=== PATIENT | male | born 1935 | race Hispanic/Latino ===

== ENCOUNTER 2020-04-23 09:49 | Emergency (ER) | payer OTHER ==
--- OUTSIDE RECORDS SUMMARY | 2020-04-23 11:24 | XMS REPORT ---
:1935 Author Organization [facility] t Address [address] [place] [address] Care Team Providers Name Role Phone Unavailable Unavailable Unavailable Payers Payer Name Policy Type Policy Number Effective Date Expiration Date S ource Problems Condition Condition Condition Status Onset Resolution Last Treating Co mments Source Name Details Category Date Date Treatment Clinician Date Hearing Hearing Problem Active [facility] Vitamin D Vitamin D Problem Active [facility] deficiency deficiency [facility] Hyperglyce Hyperglyce Problem Active [facility] manuela manuela [facility] Swelling Swelling Problem Active [facility] right [facility] - elbow elbow [facility] l [facility]ics 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 [facility] - multiple multiple Memori a joints joints l [facility] Deep vein Deep vein Problem Active [facility] thrombosis thrombosis Mary kes - (DVT) of (DVT) of Memori a right right l lower lower [facility] extremity, extremity, en t unspecifie unspecifie Cl inics d d chronicity chronicity , , unspecifie unspecifie d vein d vein Complaint Complaint Problem Active [facility] of of [facility] - debility debility Memori a and and l malaise malaise [facility] Atopic Atopic Problem Active [facility] dermatitis dermatitis [facility] - [facility] Arthralgia Arthralgia Problem Active [facility] of right of right [facility] - elbow elbow [facility] Anxiety Anxiety Problem Active [facility] Dizziness Dizziness Problem Active [facility] Closed Closed Problem Active [facility] nondisplac nondisplac Mary kes - ed ed Memoria intertroch intertroch l anteric anteric [facility] fracture fracture ent of right of right Clinic s femur with femur with routine routine healing, healing, subsequent subsequent encounter encounter Hyperlipid Hyperlipid Problem Active [facility] 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 GERD GERD Problem Active [facility] without without [facility] - esophagiti esophagiti Me moria s s l [facility]ics Chronic Chronic Problem Active [facility] back pain back pain Luke s - [facility]oria l [facility] Lumbago Lumbago Problem Active [facility] with with [facility] - sciatica, sciatica, Ceferino juvencio left side left side l [facility] Degenerati Degenerati Problem Active [facility] on of on of [facility] - lumbar or lumbar or Ceferino juvencio lumbosacra lumbosacra l l l [facility] interverte interverte en t bral disc bral disc Clin ics Erectile Erectile Problem Active [facility] t dysfunctio dysfunctio Mary kes - n n Memoria following following l radiation radiation Outp ati therapy therapy ent Clinics Prostate Prostate Problem Active [facility] cancer cancer [facility] Incontinen Incontinen Problem Active [facility] Localized Localized Problem Active [facility] swelling swelling [facility] - of both of both Memoria lower legs lower legs l [facility]ics Memory Memory Problem Active [facility] changes changes [facility] Loss of Loss of Problem Active [facility] balance balance [facility] Allergies, Adverse Reactions, Alerts Allergy Allergy Status Severity Reaction(s) Onset Inactive Treating Comm ents Source Name Type Date Date Clinician iodine DA Active [facility] 1-03 Clear 00:00: Gillis 00 [facility] iodine DA Active U [facility] 1-02 [facility] 00:00: e 00 [facility] iodine DA Active U [facility] 9-04 [facility] 00:00: e 00 [facility] Iodine Adverse Active Info Not [facility] Medications Ordered Filled Start Stop Current Ordering Indication Dosage Frequency Signature Comments Components Source Medication Medication Date Date Medication? Clinician (SIG) Name Name Omeprazole Omeprazole Yes Antoine [address] [facility] [address] [facility] [facility] ent Clinics Meclizine Meclizine Yes Antoine [address] [facility] HCl HCl Sandhu as needed [facility] ent Clinics Acetaminoph Acetaminoph Yes Antoine [address] en en Sandhu as needed [facility] ent Clinics Tylenol # 3 Tylenol # 3 Yes Antoine one tab [facility] Sand[facility] ent Clinics Immunizations Ordered Filled Immunization Date Status Comments Sourc e Immunization Name Name FluAD FluAD 2018-09-[address] [facility] - 00:00[facility]00 [facility] Procedures This patient has no known procedures. Encounters Start End Encounter Admission Attending Care Care Encounter Source Date/Time Date/Time Type Type Clinicians Facility Department ID 2020-03-19 2020-03-19 [facility] [id number] [facility] 20:03:00 20:03:00 [employer] [facility] 2020-03-19 2020-03-19 [facility] [id number] 14:00:00 14:00:00 t Social Tables [facility] Medicine [facility] Outpati ent Clinics 2020-03-13 2020-03-13 [facility] [id number] [address] 13:22:00 13:22:00 t Specialty/U Mary kes - Specialty rology [facility] a /Urology Clinic l Clinic [facility] 2020-02-29 2020-02-29 [facility] [id number] 14:35:00 14:35:00 t Specialty/U Mary kes - Specialty rology Memori a /Urology Clinic l Clinic Outpati ent Clinics 2020-01-06 2020-01-06 [facility] [id number] [address] 09:00:00 09:00:00 [place] - Drive [facility] Medicine Outpati ent Clinics 2019-12-30 2019-12-30 [facility] [id number] 09:09:00 09:09:00 t [place]ri[place] s - Drive [facility] Medicine Outpati ent Clinics 2019-12-27 2019-12-27 [facility] [id number] 13:00:00 13:00:[address] [facility] [address] [employer] s - Road [facility] Medicine Outpati ent Clinics 2019-09-23 2019-09-23 [facility] [id number] 12:28:00 12:28:00 t Specialty/U Mary kes - Specialty rology Memori a /Urology Clinic l Clinic Outpati ent Clinics 2019-08-31 2019-08-31 [facility] [id number] 09:45:00 09:45:00 t Specialty/U Mary kes - Specialty rology Memori a /Urology Clinic l Clinic Outpati ent Clinics 2019-08-24 2019-08-24 [facility] [id number] 13:22:00 13:22:00 t [place] - Drive [facility] Medicine Outpati ent Clinics 2019-08-22 2019-08-22 [facility] [id number] 08[facility]30:00 08:30:00 t [place] s - Drive [facility] Medicine Outpati ent Clinics 2019-02-14 2019-02-14 [facility] [id number] 09:15:00 09:15:00 [place] - Drive [facility] Medicine Outpati ent Clinics 2019-01-12 2019-01-12 [facility] [id number] 13:30:00 13:30:00 t [place] s - Drive [facility] Medicine Outpati ent Clinics 2018-12-06 2018-12-06 [facility] [id number] 10:15:00 10:15:00 t Specialty/U Mary kes - Specialty rology [facility] a /Urology Clinic l Clinic Outpati ent Clinics 2018-09-07 2018-09-07 [facility] [id number] 08:30:00 08:30:[address] Luke s - Drive [facility] Outpati ent Clinics 2018-04-09 2018-04-09 [facility] [id number] 09:29:00 09:29:[address] Luke s - Drive [facility] Outpati ent Clinics 2018-04-05 2018-04-05 [facility] [id number] 09:00:00 09:00:[address] Luke s - Drive [facility] Outpati ent Clinics 2018-03-23 2018-03-23 [facility] [id number] 10:00:00 10:00:[address] Luke s - Drive [facility] Results Test Description Test Time Test Comments Results Result Comments Source - XR CHEST 1 V 2019-11-26 FAX: Y 08:32:00 Valencia Pham MD [phone] [place]: St: ADM FAX: Blanco Mcintyre MD [phone] Name: ELIZABETH ROJO [facility] : 1935 Age/S: 84/M [address] Unit #: [id number] Loc: V.2086 [place] [address] Phys: Blanco Mcintyre MD Acct: [id number] Dis Date: Status: ADM IN PHONE #: [phone] Exam Date: 11/26/2019 0800 FAX #: [phone] Reason: SOB EXAMS: CPT CODE: [id number] XR CHEST 1 V [id number] REASON FOR EXAM: SOB EXAM ORDER DATE: 11/26/2019 4:00 AM Ordering: Blanco Mcintyre MD Attending:Valencia Pham MD Location: PROCEDURE: - XR CHEST 1 V COMPARISON: 11/24/2019 FINDINGS: Portable AP frontal view of the chest obtained at 8:01 AM shows patchy airspace opacity at the left base. The heart size is minimally enlarged. Pulmonary vasculatures are minimally congested. IMPRESSION: Atelectasis of the left base with probable small left pleural effusion. No evidence of pneumothorax. Stable appearance of the acute distal left clavicular fracture at 0832 Reported and signed by: Daren Jiménez M.D. CC: Valencia Pham MD; Blanco Mcintyre MD Technologist: AYANNA CABELLO RT (R); Radha Ruiz RT(R) Trnscrd Date/Time/By: 11/26/2019 (0832) : By: [email or web address] Orig Print D/T: S: 11/26/2019 (5219) PAGE 1 Signed Report BASIC METABOLIC PANEL 2019-11-26 07:02:00 Test Item Value Reference Range Interpretation Comme nts SODIUM (test code = NA) 140 mmol/L 136-145 N POTASSIUM (test code = K) 3.9 mmol/L 3.5-5.1 N CHLORIDE (test code = CL) 107.0 mmol/L 98-107 N CARBON DIOXIDE (test code = 27.0 mmol/L 21-32 N CO2) ANION GAP (test code = GAP) 9.9 10-20 L GLUCOSE (test code = GLU) 168 mg/dL 74-106 H BLOOD UREA NITROGEN (test code 16 mg/dL 7-18 N = BUN) GLOMERULAR FILTRATION RATE > 60 mL/min >=60 E stimated GFR by using (test code = GFR) Modified M DRD formula.Chronic kidney disease is defined as either kidney d amageor GFR <60 mL/min/1.73 m2 for >3 months. CREATININE (test code = CREAT) 1.00 mg/dL 0.7-1.3 N BUN/CREATININE RATIO (test code 16.0 10-20 N = BUN/CREA) CALCIUM (test code = CA) 8.6 mg/dL 8.5-10.1 N [id number] 07:02:00 Test Item Value Reference Range Interpretation Comments PHOSPHORUS (test code = PHOS) 3.0 mg/dL 2.5-4.9 N [id number] 07:02:00 Test Item Value Reference Range Interpretation Comments MAGNESIUM (test code = MAG) 2.1 mg/dL 1.8-2.4 N BASIC METABOLIC [id number] 06:57:00 Test Item Value Reference Range Interpretation Comments SODIUM (test code = NA) 140 mmol/L 136-145 N POTASSIUM (test code = K) 3.9 mmol/L 3.5-5.1 N CHLORIDE (test code = CL) 107.0 mmol/L 98-107 N CARBON DIOXIDE (test code = CO2) mmol/L 21-32 ANION GAP (test code = GAP) 10-20 GLUCOSE (test code = GLU) mg/dL 74-106 BLOOD UREA NITROGEN (test code = mg/dL 7-18 BUN) GLOMERULAR FILTRATION RATE (test mL/min >=60 code = GFR) CREATININE (test code = CREAT) mg/dL 0.7-1.3 BUN/CREATININE RATIO (test code 10-20 = BUN/CREA) CALCIUM (test code = CA) mg/dL 8.5-10.1 [id number] 06:57:00 Test Item Value Reference Range Interpretation Comments PHOSPHORUS (test code = PHOS) mg/dL 2.5-4.9 [id number] 06:57:00 Test Item Value Reference Range Interpretation Comments MAGNESIUM (test code = MAG) mg/dL 1.8-2.4 CBC W/AUTO [id number] 06:25:00 Test Item Value Reference Range Interpretation Comments WHITE BLOOD CELL (test code = 8.5 K/mm3 4.5-12.5 N WBC) RED BLOOD CELL (test code = 3.81 mill/mm3 4.0-5.8 L RBC) HEMOGLOBIN (test code = HGB) 12.1 gram/dL 13.0-17.5 L HEMATOCRIT (test code = HCT) 36.3 % 42.0-52.0 L MEAN CELL VOLUME (test code = 95.3 fL 80-98 N MCV) MEAN CELL HGB (test code = MCH) 31.8 picogram 27.0-33.0 N MEAN CELL HGB CONCETRATION 33.3 gram/dL 33.0-36.0 N (test code = MCHC) RED CELL DISTRIBUTION WIDTH 14.2 % 11.6-16.2 N (test code = RDW) RED CELL DISTRIBUTION WIDTH SD 49.3 fL 37.0-51.0 N (test code = RDW-SD) PLATELET COUNT (test code = 238 K/mm3 150-450 N PLT) MEAN PLATELET VOLUME (test code 9.8 fL 6.7-11.0 N = MPV) NEUTROPHIL % (test code = NT%) 63.1 % 39.0-69.0 N IMMATURE GRANULOCYTE % (test 0.4 % 0.0-5.0 N code = IG%) LYMPHOCYTE % (test code = LY%) 25.6 % 25.0-55.0 N MONOCYTE % (test code = MO%) 7.1 % 0.0-10.0 N EOSINOPHIL % (test code = EO%) 3.4 % 0.0-5.0 N BASOPHIL % (test code = BA%) 0.4 % 0.0-1.0 N NUCLEATED RBC % (test code = 0.0 % 0-0 N NRBC%) NEUTROPHIL # (test code = NT#) 5.37 K/mm3 1.8-7.7 N IMMATURE GRANULOCYTE # (test 0.03 x10 3/uL 0-0.03 N code = IG#) LYMPHOCYTE # (test code = LY#) 2.18 K/mm3 1.0-5.0 N MONOCYTE # (test code = MO#) 0.60 K/mm3 0-0.8 N EOSINOPHIL # (test code = EO#) 0.29 K/mm3 0.0-0.5 N BASOPHIL # (test code = BA#) 0.03 K/mm3 0.0-0.2 N NUCLEATED RBC # (test code = 0.00 K/mm3 0.0-0.1 N NRBC#) [id number] 08:18:00 Test Item Value Reference Range Interpretation Comments GLUBED (test code = 91 mg/dL 74-106 N Performe d by certified GLUBED) chemical process operator at [facility] - CT CHEST [id number] 00:06:00 Name: ELIZABETH ROJO [facility] : 1935 Age/S: 84 / M [address] Unit #: [id number] Loc: [place] [address] Phys: Radha Dempsey ENROBING MACHINE FEEDER Acct: [id number] Dis Date: Status: REG ER PHONE #: [phone] Exam Date: 11/24/2019 2330 FAX #: [phone] Reason: fall, pain, bruising EXAMS: CPT CODE: [id number] CT CHEST W/CONTRAST 70123 AFTER HOURSSERVICE ON: 11/24/2019 11:[address] Scan of the Chest With Contrast Location Code M12 History: fall, pain, bruising Technique: Axial and reconstructed coronal and sagittal scans were performed on a helical scanner post IV contrast only. One or more of the following dose reduction techniques were used: Automated exposure control, adjustment of the mA and/or kV according to patient size, and/or utilization of iterative reconstruction technique. Findings: No evidence of aorticaneurysm or dissection. There are no filling defects in the pulmonary arteries. There is mild cardiomegaly. There is no pericardial effusion. Prominent pleural fibrotic changes are seen, slightly more pronounced in the lung bases consistent with interstitial fibrosis. Scattered emphysematous blebs also noted. There is no pleural effusion. There is no pneumothorax. There is a displaced, recent left distal clavicle fracture. There are fracturesof the left 1st through 8th posterior ribs. No large hematoma or definite vascular injury is seen of the left subclavian artery or proximal vertebral artery. There is no acute sternal fracture. No definite compression fractures are seen in the thoracic spine.Impression: Left 1st through 8th posterior rib fractures. No pneumothorax. Comminuted left distal clavicle fracture. Chronic fibrotic changes. Cardiomegaly. PAGE 1 Signed Report (CONTINUED)Name: ELIZABETH ROJO [facility] : 1935 Age/S: 84 / M [address] Unit #: [id number] Loc: [place] [address] Phys: Radha Dempsey ENROBING MACHINE FEEDER Acct: [id number] Dis Date: Status: REG ER PHONE #: [phone] Exam Date: 11/24/2019 2330 FAX #: [phone] Reason: fall, pain, bruising EXAMS: CPT CODE: [id number] CT CHEST W/CONTRAST 03424 <Continued> AFTER HOURS SERVICE ON: 11/24/2019 11:[address] Scan of the Abdomenand Pelvis With Contrast Location Code M12 History: fall, pain, bruising Technique: Axial and reconstructed coronal and sagittal scans were performed on a helical scanner post IV contrast. One or more of the following dose reduction techniques were used: Automated exposure control, adjustment of the mA and/or kV according to patient size, and/or utilization of iterative reconstruction technique. Findings: There is no liver or splenic laceration. There is no perisplenic or perihepatic free fluid. Gallbladder is absent. There is pneumobilia from a presumed sphincterotomy. There are no peripancreatic inflammatory changes. There is a hypodense subcentimeter lesion in the left kidney which is too small to adequately characterize. There is no hydronephrosis. Adrenal glands are unremarkable. No evidence of aortic aneurysm or dissection. Bladder is unremarkable. There is no pelvic fracture. No compression fracture seen in the lumbar spine. There is no bowel obstruction, free air ormesenteric edema. The appendix is not visualized. IMPRESSION: No acute traumatic findings in the abdomen or pelvis. Electronically Signedby Karol John M.D. on 11/25/2019 at 0006 Reported and signed by: Karol John M.D. PAGE 2 Signed Report (CONTINUED) Name: ELIZABETH ROJO [facility] : 1935 Age/S: 84 / M [address] Unit #: [id number] Loc: [place] [address] Phys: Radha Dempsey ENROBING MACHINE FEEDER Acct: [id number] Dis Date: Status: REG ER PHONE #: [phone] Exam Date: 11/24/2019 2330 FAX #: [phone] Reason: fall, pain, bruising EXAMS: CPT CODE: [id number] CT CHEST W/CONTRAST [id number] <Continued> CC: Radha Dempsey ENROBING MACHINE FEEDER; Rodger Montero MD Technologist:LAYNE MCDONOUGH CTDI: DLP: Trnscb Date/Time: 11/25/2019 (0006) [email or web address] Orig Print D/T: S: 11/25/2019 (0009) PAGE 3 Signed Report- CT ABD PELVIS [id number] 00:06:00 Name: ELIZABETH ROJO [facility] : 1935 Age/S: 84 / [facility] [address] [facility] [id number] Loc: [place] [address] Phys: Radha Dempsey NP Acct: [id number] Dis Date: Status: REG ER PHONE #: [phone] Exam Date: 11/24/20192329 FAX #: [phone] Reason: fall, pain, bruising EXAMS: CPTCODE: [id number] CT ABD PELVIS W/CONT 34636 AFTER HOURS SERVICE ON: 11/24/2019 11:[address] Scan of the Chest With Contrast Location Code M12 History: fall, pain, bruising Technique: Axial and reconstructed coronal and sagittal scans were performed on a helical scanner post IV contrast only. One or more of the following dose reduction techniques were used: Automated expos ure control, adjustment of the mA and/or kV according to patient size, and/or utilization of iterative reconstruction technique. Findings: No evidence of aorticaneurysm or dissection. There are no filling defects in the pulmonary arteries. There is mild cardiomegaly. There is no pericardial effusion. Prominent pleural fibrotic changes are seen, slightly more pronounced in the lung bases consistent with interstitial fibrosis. Scattered emphysematous blebs also noted. There is no pleural effusion. There is no pneumothorax. There is a displaced, recent left distal clavicle fracture. There are fracturesof the left 1st through 8th posterior ribs. No large hematoma or definite vascular injury is seen of the left subclavian artery or proximal vertebral artery. There is no acute sternal fracture. No definite compression fractures are seen in the thoracic spine.Impression: Left 1st through 8th posterior rib fractures. No pneumothorax. Comminuted left distal clavicle fracture. Chronic fibrotic changes. Cardiomegaly. PAGE 1 Signed Report (CONTINUED)Name: ELIZABETH ROJO [facility] : 1935 Age/S: 84 / M [address] [facility] Unit #: [id number] Loc: [place] [address] Phys: Radha Dempsey ENROBING MACHINE FEEDER Acct: [id number] Dis Date: Status: REG ER PHONE #: [phone] Exam Date: 11/24/2019 2330 FAX #: [phone] Reason: fall, pain, bruising EXAMS: CPT CODE: [id number] CT ABD PELVIS W/CONT 42861 <Continued> AFTER HOURS SERVICE ON: 11/24/2019 11:[address] Scan of the Abdomenand Pelvis With Contrast Location Code M12 History: fall, pain, bruising Technique: Axial and reconstructed coronal and sagittal scans were performed on a helical scanner post IV contrast. One or more of the following dose reduction techniques were used: Automated exposure control, adjustment of the mA and/or kV according to patient size, and/or utilization of iterative reconstruction technique. Findings: There is no liver or splenic laceration. There is no perisplenic or perihepatic free fluid. Gallbladder is absent. There is pneumobilia from a presumed sphincterotomy. There are no peripancreatic inflammatory changes. There is a hypodense subcentimeter lesion in the left kidney which is too small to adequately characterize. There is no hydronephrosis. Adrenal glands are unremarkable. No evidence of aortic aneurysm or dissection. Bladder is unremarkable. There is no pelvic fracture. No compression fracture seen in the lumbar spine. There is no bowel obstruction, free air ormesenteric edema. The appendix is not visualized. IMPRESSION: No acute traumatic findings in the abdomen or pelvis. Electronically Signedby Karol John M.D. on 11/25/2019 at 0006 Reported and signed by: Karol John M.D. PAGE 2 Signed Report (CONTINUED) Name: ELIZABETH ROJO [facility] : 1935 Age/S: 84 / M [address] Unit #: [id number] Loc: [place] [address] Phys: Radha Dempsey NP Acct: [id number] Dis Date: Status: REG ER PHONE #: [phone] Exam Date: 11/24/2019 2330 FAX #: [phone] Reason: fall, pain, bruising EXAMS: CPT CODE: [id number] CT ABD PELVIS W/CONT 54393 <Continued> CC: Radha Dempsey ENROBING MACHINE FEEDER; Rodger Montero MD Technologist:LAYNE MCDONOUGH CTDI: DLP: Trnscb Date/Time: 11/25/2019 (5) Anna MarieMA50 Orig Print D/T: S: 11/25/2019 (8) PAGE 3 Signed ReportBASI METABOLIC [id number] 23:46:00 Test Item Value Reference Range Interpretation Comments SODIUM (test code = 141 mmol/L 136-145 N NA) POTASSIUM (test code 3.9 mmol/L 3.5-5.1 N = K) CHLORIDE (test code = 107.0 mmol/L 98-107 N CL) CARBON DIOXIDE (test 28.0 mmol/L 21-32 N code = CO2) ANION GAP (test code 9.9 10-20 L = GAP) GLUCOSE (test code = 116 mg/dL 74-106 H GLU) BLOOD UREA NITROGEN 10 mg/dL 7-18 N (test code = BUN) GLOMERULAR FILTRATION > 60 mL/min >=60 Estima sánchez GFR by RATE (test code = using Elvi fied MDRD GFR) formula.Chronic kidney disease is defined as eith er kidney damageor GFR <60 mL/min/1.73 m2 for >3 months. CREATININE (test code 0.80 mg/dL 0.7-1.3 N = CREAT) BUN/CREATININE RATIO 12.5 10-20 N (test code = BUN/CREA) CALCIUM (test code = 9.1 mg/dL 8.5-10.1 N CA) [id number] 23:46:00 Test Item Value Reference Range Interpretation Comments TROPONIN-I (test code = TROPI) <0.015 ng/mL 0-0.045 N CREATINE KINASE (CK)2019-11-24 23:37:00 Test Item Value Reference Range Interpretation Comments CREATINE KINASE (CK) (test code = 69 IUnit/L 26-208 N CK) PROTHROMBIN [id number] 23:36:00 Test Item Value Reference Range Interpretation Comments PROTHROMBIN TIME 11.8 seconds 9.0-14.0 N PATIENT (test code = PTP) INTERNATIONAL NORMAL 1.0 0.8-1.2 N The the rapeutic range RATIO (test code = for oral INR) anticoagulant t herapy formost indicat ions is an internati onal normalized rati o (INR)of between 2.0 and 3.0. The recommended therapeutic INR range for various cli nical situations is l isted below: Clinical Situat ion INR range Pulmonary embol ism treatment (2.0-3.0)Venou s thrombosis treatmentVenous thrombosis prophylaxis (hi gh risk surgery)Prevent ion of systemic emboli sm from: A cute myocardial infa rction Valvula r heart disease Atrial fibrilla tion Mechanical pros thetic heart valves (2.5-3.5) IS PATIENT ON ANTICOAGULANTS? NTHROMBOPLASTIN TIME [id number] 23:36:00 Test Item Value Reference Range Interpretation Comments THROMBOPLASTIN TIME PARTIAL 29.5 seconds 25.0-36.5 N (test code = PTT) IS PATIENT ON ANTICOAGULANTS? NBASIC METABOLIC [id number] 23:32:00 Test Item Value Reference Range Interpretation Comments SODIUM (test code = NA) 141 mmol/L 136-145 N POTASSIUM (test code = K) 3.9 mmol/L 3.5-5.1 N CHLORIDE (test code = CL) 107.0 mmol/L 98-107 N CARBON DIOXIDE (test code = CO2) mmol/L 21-32 ANION GAP (test code = GAP) 10-20 GLUCOSE (test code = GLU) mg/dL 74-106 BLOOD UREA NITROGEN (test code = mg/dL 7-18 BUN) GLOMERULAR FILTRATION RATE (test mL/min >=60 code = GFR) CREATININE (test code = CREAT) mg/dL 0.7-1.3 BUN/CREATININE RATIO (test code 10-20 = BUN/CREA) CALCIUM (test code = CA) mg/dL 8.5-10.1 [id number] 23:32:00 Test Item Value Reference Range Interpretation Comments TROPONIN-I (test code = TROPI) ng/mL 0-0.045 CBC W/O [id number] 23:32:00 Test Item Value Reference Range Interpretation Comments WHITE BLOOD CELL (test code = 9.2 K/mm3 4.5-12.5 N WBC) RED BLOOD CELL (test code = 4.01 mill/mm3 4.0-5.8 N RBC) HEMOGLOBIN (test code = HGB) 12.3 gram/dL 13.0-17.5 L HEMATOCRIT (test code = HCT) 38.9 % 42.0-52.0 L MEAN CELL VOLUME (test code = 97.0 fL 80-98 N MCV) MEAN CELL HGB (test code = MCH) 30.7 picogram 27.0-33.0 N MEAN CELL HGB CONCETRATION 31.6 gram/dL 33.0-36.0 L (test code = MCHC) RED CELL DISTRIBUTION WIDTH 14.0 % 11.6-16.2 N (test code = RDW) PLATELET COUNT (test code = 251 K/mm3 150-450 N PLT) MEAN PLATELET VOLUME (test code 9.5 fL 6.7-11.0 N = MPV) - XR CHEST 1 [id number] 22:33:00 FAX: Rodger Montero MD [place]: B St: REG Name: ELIZABETH ROJO [facility] : 1935 Age/S: 84/M [address] [facility] Unit#: [id number] Loc: [place] [address] Phys: Rodger Montero MD Acct: [id number] Dis Date: Status: REG ER PHONE #: [phone] Exam Date: 11/24/2019 2140 FAX #: [phone] Reason: fall EXAMS: CPT CODE: [id number] XR CHEST 1 V 16389 REASON FOR EXAM: fall Exam Order Date: 11/24/2019 9:19 PM Ordering M.D.: Rodger Montero MD PROCEDURE: - XR CHEST 1 V COMPARISON: Chest radiograph and CT chest January 06, 2015 FINDINGS: There are interstitial opacities throughout both lungs which have worsened from the previous radiograph. This may represent worsening pulmonary fibrotic changes which are better characterized on the previous CT scan of the chest. However it would be difficult to exclude a s uperimposed acute infection. The cardiomediastinal silhouette appears prominent relative to the thorax however this may be due to diminished lung volumes. There are minimally displaced fractures of the left first and second ribs posteriorly. There is also fracture of the distal left clavicle with disruption of the acromioclavicular joint. Prior cholecystectomy. IMPRESSION: Distal left clavicular fracture withdisruption of the left acromial clavicular joint. Minimally displaced fractures of the left first and second ribs. Worsening opacities throughout both lungs may represent worsening fibrotic changes however superimposed acute consolidation cannot be excluded. Location: [facility] at 2233 Reported and signed by: Rey Rios MD PAGE 1 Signed Report (CONTINUED) FAX: Rodger Montero MD [place] us: B St: REG -- Name: ELIZABETH ROJO [facility] : 1935 Age/S: 84/M [address] Unit #: [id number] Loc: [place] [address] Phys: Rodger Montero MD Acct: [id number] Dis Date: Status: REG ER PHONE #: [phone] Exam Date: 11/24/20192139 FAX #: [phone] Reason: fall EXAMS: CPT CODE: [id number] XR CHEST 1 V 72288 <Continued> CC: Rodger Montero MD Technologist: RT MILTON(R); Laura Neves(R) Trnscrd Date/Time/By: 11/24/2019 (2232) : By: [email or web address] Orig Print D/T: S: 11/24/2019 (2235) PAGE 2 Signed Report- XR ELBOW 3 + V [id number] 22:17:00 FAX: Radha Dempsey NP [place]: St: REG FAX: Rodger Montero MD Name: ELIZABETH ROJO [facility] : 1935 Age/S: 84/M [address] Unit #: [id number] Loc: [place] [address] Phys: Radha Dempsey NP Acct: [id number] Dis Date: Status: REG ER PHONE #: [phone] Exam Date: 11/24/20192139 FAX #: [phone] Reason: fall, pain EXAMS: CPT CODE: [id number] XR ELBOW 3 + V LT [address] CLINICAL HISTORY: ARM PAIN TECHNIQUE: 3 views of the left shoulder, 2 views of the left humerus, and 3 views of the left elbow COMPARISON: CT of the cervical spine earlier today FINDINGS: There is a fracture in the distal left clavicle with disruption of the left acromioclavicular joint. The left glenohumeral joint appears to be appropriately aligned. The humerus and the visualized radius and ulna are within normal limits. The elbow joint demonstrates degenerative changes but is appropriately aligned with no joint effusion. Left first rib fracture seen on the prior CT of the cervical spine earlier today is not clearly visualized on this study. IMPRESSION: Distal left clavicle fracture with disruption of the acromioclavicular joint. However the glenohumeral joint and the remainder of the left upper extremity is within normal limits. Location: [facility] at 2217 Reported and signed by: Rey Rios MD CC: Radha Dempsey NP; Rodger Montero MD Technologist: RT MILTON(R); Laura Neves(R) Trnokrd Date/Time/By: 11/24/2019 (2216) : By: [email or web address] [facility] Print D/T: S: 11/24/2019 (222) PAGE 1 Signed Report- XR SHOULDER 2 + V [id number] 22:17:00 FAX: Radha Dempsey NP [place]: St: REG FAX: Rodger Montero MD Name: ELIZABETH ROJO [facility] : 1935 Age/S: 84/M [address] Unit #: [id number] Loc: [place] [address] Phys: Radha Dempsey NP Acct: [id number] Dis Date: Status: REG ER PHONE #: [phone] Exam Date: 11/24/20192134 FAX #: [phone] Reason: fall, pain EXAMS: CPT CODE: [id number] XR SHOULDER 2 + [place] LT [address] CLINICAL HISTORY: ARM PAIN TECHNIQUE: 3 views of the left shoulder, 2 views of the left humerus, and 3 views of the left elbow COMPARISON: CT of the cervical spine earlier today FINDINGS: There is a fracture in the distal left clavicle with disruption of the left acromioclavicular joint. The left glenohumeral joint appears to be appropriately aligned. The humerus and the visualized radius and ulna are within normal limits. The elbow joint demonstrates degenerative changes but is appropriately aligned with no joint effusion. Left first rib fracture seen on the prior CT of the cervical spine earlier today is not clearly visualized on this study. IMPRESSION: Distal left clavicle fracture with disruption of the acromioclavicular joint. However the glenohumeral joint and the remainder of the left upper extremity is within normal limits. Location: [facility] at 2217 Reported and signed by: Rey Rios MD CC: Radha Dempsey NP; Rodger Montero MD Technologist: RT MILTON(R); Laura Neves(R) [facility] Date/Time/By: 11/24/2019 (2216) : By: [email or web address] [facility] Print D/T: S: 11/24/2019 (2219) PAGE 1 Signed Report- XR HUMERUS 2 + V [id number] 22:17:00 FAX: Radha Dempsey NP [place]: St: REG FAX: Rodger Montero MD Name: ELIZABETH ROJO [facility] : 1935 Age/S: 84/M [address] [facility] Unit #: [id number] Loc: [place] [address] Phys: Radha Dempsey NP Acct: [id number] Dis Date: Status: REG ER PHONE #: [phone] Exam Date: 11/24/20192129 FAX #: [phone] Reason: ARM PAIN EXAMS: CPT CODE: [id number] XR HUMERUS 2 + [place] [address] CLINICAL HISTORY: ARM PAIN TECHNIQUE: 3 views of the left shoulder, 2 views of the left humerus, and 3 views of the left elbow COMPARISON: CT of the cervical spine earlier today FINDINGS: There is a fracture in the distal left clavicle with disruption of the left acromioclavicular joint. The left glenohumeral joint appears to be appropriately aligned. The humerus and the visualized radius and ulna are within normal limits. The elbow joint demonstrates degenerative changes but is appropriately aligned with no joint effusion. Left first rib fracture seen on the prior CT of the cervical spine earlier today is not clearly visualized on this study. IMPRESSION: Distal left clavicle fracture with disruption of the acromioclavicular joint. However the glenohumeral joint and the remainder of the left upper extremity is within normal limits. Location: [facility] at 2217 Reported and signed by: Rey Rios MD CC: Radha Dempsey NP; Rodger Montero MD Technologist: RT MLITON(R); Laura Neves(R) Trnscrd Date/Time/By: 11/24/2019 (2216) : By: [email or web address] [facility] Print D/T: S: 11/24/2019 (2219) PAGE 1 Signed Report- XR HIP W/PEL UNI 2+V [id number] 22:13:00 FAX: Radha Dempsey NP [place]: St: REG FAX: Rodger Montero MD Name: ELIZABETH ROJO [facility] : 1935 Age/S: 84/M [address] Unit #: [id number] Loc: [place] [address] Phys: Radha Dempsey [employer]ING [employer]ACH[employer]ER Acct: V [id number] Dis Date: Status: REG ER PHONE #: [phone] Exam Date: 11/24/20192124 FAX #: [phone] Reason: HIP PAIN EXAMS: CPT CODE: [id number] XR HIP W/PEL UNI 2+V LT [address] HISTORY: HIP PAIN EXAM: AP pelvis as well as AP and frog-leg views of the left hip Comparison: Pelvic radiographs November 24, 2017 and left hip radiographs November 04, 2018 FINDINGS: The patient has undergone ORIF of the previously seen right femoral fracture. No evidence of hardware loosening. 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 There are degenerative changes in both hips. IMPRESSION: No acute fracture of the bony pelvis or malalignment of the hips. Prior ORIF of right femoral fracture with posttraumatic heterotopicossification in the adjacent soft tissues. No hardware loosening. Location: [facility] at 2213 Reported and signed by: Rey Rios MD CC: Radha Dempsey NP; Rodger Montero MD Technologist: RT MILTON(R); Laura Neves(R) Trnscrd Date/Time/By: 11/24/2019 (2212) : By: [email or web address] [facility] Print D/T: S: 11/24/2019 (2216) PAGE 1 Signed Report- CT C-SPINE W/O [id number] 22:04:00 Name: ELIZABETH ROJO [facility] : 1935 Age/S: 84 / M [address] Unit #: [id number] Loc: [place] [address] Phys: Radha Dempsey [employer] Acct: [id number] Dis Date: Status: REG ER PHONE #: [phone] Exam Date: 11/24/20192104 FAX #: [phone] Reason: Neck Pain EXAMS: CPTCODE: [id number] CT C-SPINE W/O CONTRAST 44679 HISTORY: HE ADACHE TECHNIQUE: Noncontrast 2.[address] of the head. Examination acquired within 24 hours of arrival. Automated exposure control for dose reduction. COMPARISON: Noncontrast CT brain July 27, 2016 FINDINGS: There is mild swelling of the soft tissues of the left parietal scalp. Calvarium and skull base are intact. No acute hemorrhage. No intracranial mass, mass effect, or midline shift. No effacement of the sulci or berger-white matter interface. There is cortical atrophy with ventriculomegaly and there are microvascular ischemic changes of the white matter. These findings were also seen on the prior exam and appear grossly unchanged. Visualized paranasal sinuses are clear. Mastoid air cells and middle ear cavities are clear. Prior lens extraction bilaterally. There has been prior fusion of C4-C5 by anterior approach. The vertebrae are appropriately aligned. There is mild height loss of the vertebral bodies throughout the cervical spine and there are prominent osteophytes in the visualized thoracic spine. There is no fracture of the cervical spine. However there is a minimally displaced fracture involving the left first rib (series 3 image 72 of the cervical spine study). Multilevel foraminal narrowing is seen however assessment is limited due to suboptimal patient positioning on axial imaging. No prevertebral or paraspinal soft tissue abnormality. Lung apices are clear. IMPRESSION: No acute intracranialprocess or significant change from prior head CT in 2016. Degenerative changes of the cervical spine without fracture or malalignment. PAGE 1 Signed Report (CONTINUED) Name: ELIZABETH ROJO [facility] : 1935 Age/S: 84 / M [address] [facility] Unit #: [id number] Loc: [place] [address] Phys: Radha Dempsey [employer] Acct: [id number] Dis Date: Status: REG ER PHONE #: [phone] Exam Date: 11/24/20192104 FAX #: [phone] Reason: Neck Pain EXAMS: CPT CODE: [id number] CT C-SPINE W/O CONTRAST 44928 <Continued> Minimally displaced fracture of the left first rib. Location: [facility] at 2204 Reported and signed by: Rye Rios MD CC: Radha Dempsey E[employer]OBING MACHINE FEEDER; Rodger Montero MD Technologist:Azul Trotter RT(R) CTDI: DLP: Trnscb Date/Time: 11/24/2019 (2203) [email or web address] Orig Print D/T: S: 11/24/2019 (2206) PAGE 2 Signed Report- CT HEAD/BRAIN W/O [id number] 22:04:00 Name: ELIZABETH ROJO [facility] : 1935 Age/S: 84 / M [address] [facility] Unit #: [id number] Loc: [place] [address] Phys: Radha Dempsey NP Acct: [id number] Dis Date: Status: REG ER PHONE #: [phone] Exam Date: 11/24/20192056 FAX #: [phone] Reason: HEADACHE EXAMS: CPT CODE: [id number] CT HEAD/BRAIN W/O CONT 90277 HISTORY: HEADACHE TECHNIQUE: Noncontrast 2.[address] of the head. Examination acquired within 24 hours of arrival. Automated exposure control for dose reduction. COMPARISON: Noncontrast CT brain July 27, 2016 FINDINGS: There is mild swelling of the soft tissues of the left parietal scalp. Calvarium and skull base are intact. No acute hemorrhage. No intracranial mass, mass effect, or midline shift. No effacement of the sulci or berger-white matter interface. There is cortical atrophy with ventriculomegaly and there are microvascular ischemic changes of the white matter. These findings were also seen on the prior exam and appear grossly unchanged. Visualized paranasal sinuses are clear. Mastoid air cells and middle ear cavities are clear. Prior lens extraction bilaterally. There has been prior fusion of C4-C5 by anterior approach. The vertebrae are appropriately aligned. There is mild height loss of the vertebral bodies throughout the cervical spine and there are prominent osteophytes in the visualized thoracic spine. There is no fracture of the cervical spine. However there is a minimally displaced fracture involving the left first rib (series 3 image 72 of the cervical spine study). Multilevel foraminal narrowing is seen however assessment is limited due to suboptimal patient positioning on axial imaging. No prevertebral or paraspinal soft tissue abnormality. Lung apices are clear. IMPRESSION: No acute intracranialprocess or significant change from prior head CT in 2016. Degenerative changes of the cervical spine without fracture or malalignment. PAGE 1 Signed Report (CONTINUED) Name: ELIZABETH ROJO [facility] : 1935 Age/S: 84 / M [address] [facility] Unit #: [id number] Loc: [place] [address] Phys: Radha Dempsey NP Acct: [id number] Dis Date: Status: REG ER PHONE #: [phone] Exam Date: 11/24/20192056 FAX #: [phone] Reason: HEADACHE EXAMS: CPT CODE: [id number] CT HEAD/BRAIN W/O CONT 69142 <Continued> Minimally displaced fracture of the left first rib. Location: [facility] at 2204 Reported and signed by: Rey Rios MD CC: Radha Dempsey E[employer]OBING MACHINE FEEDER; Rodger Montero MD Technologist:Azul Trotter RT(R) CTDI: DLP: Trnscb Date/Time: 11/24/2019 (2203) [email or web address] Orig Print D/T: S: 11/24/2019 (2206) PAGE 2 Signed Report
[2020-04-23] MEDS ORDERED: HYDROCODONE/APAP 7.5/325 MG TAB ONE (11:25)
--- OUTSIDE RECORDS SUMMARY | 2020-04-23 11:25 | XMS REPORT ---
:1935 Author Organization [employer] Care Team Providers Name Role Phone Antoine Sandhu Provider Role Unavailable Allergies No Known Allergies Problems Problem Type Condition Code Onset Dates Condition Statu s Problem Lumbago with sciatica, left side M54.42 Active Problem Hypogonadism male E29.1 Active Problem Hearing loss H91.90 Active Problem Hyperglycemia R73.9 Active Problem Vitamin D deficiency E55.9 Active Problem Complaint of debility and malaise R53.81 Active Problem Closed nondisplaced S72.144D Active intertrochanteric fracture of right femur with routine healing, subsequent encounter Problem Dizziness R42 Active Problem Deep vein thrombosis (DVT) of I82.401 Active right lower extremity, unspecified chronicity, unspecified vein Problem Arthralgia of right elbow M25.521 Ac tive Problem Swelling of right elbow M25.421 Acti ve Problem Urinary incontinence, unspecified R32 Active type Problem Localized swelling of both lower R22.43 Active legs Problem Degenerative joint disease M19.90 A ctive Problem Hyperlipidemia E78.5 Active Problem Memory changes R41.3 Active Problem Anxiety F41.9 Active Problem 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 Problem GERD without esophagitis K21.9 Act cristofer Problem Incontinence R32 Active Problem Prostate cancer C61 Active Problem 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
--- OUTSIDE RECORDS SUMMARY | 2020-04-23 11:25 | XMS REPORT ---
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 Active Problem Lumbago with sciatica, left side M54.42 Active Problem Hypogonadism male E29.1 Active Problem Hearing loss H91.90 Active Problem Hyperglycemia R73.9 Active Problem Vitamin D deficiency E55.9 Active Problem Dizziness R42 Active Problem Anxiety F41.9 Active Problem Vitamin B 12 deficiency E53.8 Acti ve Problem Degenerative joint disease M19.90 A ctive Problem Hyperlipidemia E78.5 Active Problem Pulmonary fibrosis J84.10 Active Problem Decreased testosterone level E29.1 Active Problem Chronic back pain M54.9 Active Problem 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 Problem Atopic dermatitis L20.9 Active Problem Complaint of debility and malaise R53.81 Active Problem Hydrocele N43.3 Active Problem 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 Active Assessment Loss of balance R26.89 Active Assessment Degenerative joint disease M19.90 A ctive Assessment Vitamin D deficiency E55.9 Active Assessment Atopic dermatitis L20.9 Active Assessment Chronic back pain M54.9 Active Assessment Pulmonary fibrosis J84.10 Active Assessment History of fall Z91.81 Active Problem Closed nondisplaced S72.144D Active intertrochanteric fracture of right femur with routine healing, subsequent encounter Assessment Localized swelling of both lower R22.43 Active legs Problem Deep vein thrombosis (DVT) of I82.401 Active right lower extremity, unspecified chronicity, unspecified vein Problem Swelling of right elbow M25.421 Acti ve Problem GERD without esophagitis K21.9 Act cristofer Problem Arthralgia of right elbow M25.521 Ac tive Problem Urinary incontinence, unspecified R32 Active type Problem Memory changes R41.3 Active Problem Loss of balance R26.89 Active Assessment Weakness R53.1 Active Problem Prostate cancer C61 Active Assessment Complaint of debility and malaise R53.81 Active Problem 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 Assessment Memory changes R41.3 Active Problem Localized swelling of both lower R22.43 Active legs Assessment Urinary incontinence, unspecified R32 Active type Problem Incontinence R32 Active Assessment Hearing loss H91.90 Active Assessment Hypogonadism male E29.1 Active Assessment Dizziness R42 Active Assessment 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 Assessment [facility], active care Z78.9 Active coordination Assessment GERD without esophagitis K21.9 Act cristofer Assessment 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
--- OUTSIDE RECORDS SUMMARY | 2020-04-23 11:25 | XMS REPORT ---
:1935 Author Organization [employer] Care Team Providers Name Role Phone Fabi Tam Provider Role Unavailable Allergies No Known Allergies [...]
--- OUTSIDE RECORDS SUMMARY | 2020-04-23 11:26 | XMS REPORT ---
[...] E55.9 Active Problem Dizziness R42 Active Problem Closed nondisplaced S72.144D Active intertrochanteric fracture of right femur with routine healing, subsequent encounter Problem Deep vein thrombosis (DVT) of I82.401 Active right lower extremity, unspecified chronicity, unspecified vein Problem Anxiety F41.9 Active Problem Swelling of right elbow M25.421 Acti ve Problem GERD without esophagitis K21.9 Act cristofer Problem Arthralgia of right elbow M25.521 Ac tive Problem Urinary incontinence, unspecified R32 Active type Problem Memory changes R41.3 Active Problem Vitamin B 12 deficiency E53.8 Acti ve Problem Degenerative joint disease M19.90 A ctive Problem Loss of balance R26.89 Active Problem Hyperlipidemia E78.5 Active Problem Prostate cancer C61 Active Problem 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
--- NOTE | 2020-04-23 11:32 | RAD REPORT ---
EXAM DESCRIPTION: Shoulder Right 2 View - 04/23/2020 10:33 am CLINICAL HISTORY: fall this morning, decreased ROM COMPARISON: CHEST PA AND LAT 2 VIEW dated 12/13/2015 TECHNIQUE: Internal and external rotation views of the right shoulder were obtained. FINDINGS: There is no fracture or dislocation. AC joint degenerative changes are present. The joint space is slightly widened and calcifications are present. There is hypertrophy along the superior ma rgin of the clavicle head and capsular thickening. Acromial humeral joint space within normal range. Degenerative changes of the right shoulder are similar to the 2016 chest film. IMPRESSION: No fracture identified on this study. Degenerative changes are present at the AC joint not substantially different from 2016.
[2020-04-23 12:18] VITALS: BP 103/70; TEMP 97.5; O2SAT 98
--- NOTE | 2020-04-23 19:57 | ER ---
Nurse's Notes [facility] Name: Mich Ash Age: 84 yrs Sex: Male : 1935 Arrival Date: 04/23/2020 Time: 09:55 Bed 20 Private MD: Diagnosis: Pain in right shoulder;Fall due to bumping against object Presentation: 04/23 10:08 Chief complaint: Patient states: R shoulder pain after a fall from standing this ss morning at 0500. Coronavirus screen: Proceed with normal triage. Patient denies a cough. Patient denies shortness of breath or difficulty breathing. Patient denies measured and/or subjective temperature greater than 100.4F prior to today's visit. Patient denies travel on a cruise ship or to a country the [facility] currently lists as an affected area. Patient denies contact with known and/or suspected case of COVID-19. Ebola Screen: Patient denies exposure to infectious person. Patient denies travel to an Ebola-affected area in the 21 days before illness onset. Initial Sepsis Screen: Does the patient meet any 2 criteria? No. Patient's initial sepsis screen is negative. Does the patient have a suspected source of infection? No. Patient's initial sepsis screen is negative. Risk Assessment: Do you want to hurt yourself or someone else? Patient reports no desire to harm self or others. Onset of symptoms was April 23, 2020. 10:08 Method Of Arrival: Wheelchair ss 10:08 Acuity: ELISSA 4 ss Historical: - Allergies: 10:09 No Known Allergies; ss - Immunization history:: Adult Immunizations up to date. - Social history:: Smoking status: Patient/guardian denies using tobacco, but has a distant history of tobacco abuse. Screenin:10 Abuse screen: Denies threats or abuse. Nutritional screening: No deficits noted. Tuberculosis screening: No symptoms or risk factors identified. Fall Risk None identified. Assessment: 10:06 General: Appears uncomfortable, Behavior is cooperative, appropriate for age. Pain: Complains of pain in right supraclavicular area Pain does not radiate. Pain currently is 10 out of 10 on a pain scale. Quality of pain is described as throbbing, Pain began 4 hours ago. Neuro: Level of Consciousness is awake, alert. Cardiovascular: Capillary refill < 3 seconds Patient's skin is warm and dry. Respiratory: Airway is patent Respiratory effort is even, unlabored. GI: Bowel sounds present X 4 quads. :. Derm: Skin is intact, is healthy with good turgor. Musculoskeletal: Circulation, motion, and sensation intact. Range of motion: limited in right shoulder. Vital Signs: 10:08 BP 103 / 70; Pulse 88; Resp 16; Temp 97.5(TE); Pulse Ox 98% on R/A; Weight 52.16 kg; ss ED Course: 09:55 Patient arrived in ED. fj1 09:57 Azeem Nino MD is Attending Physician. [facility] 10:06 Earline Kwok, RN is Primary Nurse. 10:09 Triage completed. 10:09 Arm band placed on right wrist. 10:11 Patient has correct armband on for positive identification. Bed in low position. Call light in reach. Side rails up X2. 10:35 XRAY Shoulder RIGHT 2 view In Process Unspecified. EDOH 10:45 Sling applied to right arm. [facility] 10:45 No provider procedures requiring assistance completed. Patient did not have IV access ah during this emergency room visit. 11:06 Norberto Kendall MD is Referral Physician. [facility] Administered Medications: 11:25 Drug: [place] (7.5 mg-325 mg) 1 tabs Route: PO; 22:41 Follow up: Response: No adverse reaction Outcome: 11:06 Discharge ordered by . [facility] 11:30 Discharged to home via wheelchair, with family. 11:30 Condition: stable 11:30 Discharge instructions given to patient, family, Instructed on discharge instructions, follow up and referral plans. medication usage, Demonstrated understanding of instructions, follow-up care, medications, Prescriptions given X 1. 12:11 Patient left the ED. Signatures: Dispatcher [employer] EDAzeem Anderson MD MD cha Smirch, Shelby, RN RN Lin Jasmine [facility] Jacques Narayanan 1 Earline Kwok, RN RN
--- NOTE | 2020-04-23 19:57 | EDPHYS ---
Physician Documentation [facility] Name: Mich Ash Age: 84 yrs Sex: Male : 1935 Arrival Date: 04/23/2020 Time: 09:55 Bed 20 Private MD: ED Physician Azeem Nino HPI: 04/23 10:18 This 84 yrs old Male presents to ER via Wheelchair with complaints of Fall mehdi Injury. 10:18 Details of fall: The patient fell from an upright position, while walking. Onset: The mehdi symptoms/episode began/occurred last night. Associated injuries: The patient sustained anterior aspect of right shoulder and posterior aspect of right shoulder. Severity of symptoms: At their worst the symptoms were moderate, in the emergency department the symptoms are unchanged. The patient has not experienced similar symptoms in the past. Historical: - Allergies: 10:09 No Known Allergies; ss - Immunization history:: Adult Immunizations up to date. - Social history:: Smoking status: Patient/guardian denies using tobacco, but has a distant history of tobacco abuse. ROS: 10:18 Constitutional: Negative for fever, chills, and weight loss, Eyes: Negative for injury, mehdi pain, redness, and discharge, ENT: Negative for injury, pain, and discharge, Neck: Negative for injury, pain, and swelling, Cardiovascular: Negative for chest pain, palpitations, and edema, Respiratory: Negative for shortness of breath, cough, wheezing, and pleuritic chest pain, Abdomen/GI: Negative for abdominal pain, nausea, vomiting, diarrhea, and constipation, Back: Negative for injury and pain, : Negative for injury, bleeding, discharge, and swelling, Skin: Negative for injury, rash, and discoloration, Neuro: Negative for headache, weakness, numbness, tingling, and seizure, Psych: Negative for depression, anxiety, suicide ideation, homicidal ideation, and hallucinations, Allergy/Immunology: Negative for hives, rash, and allergies, Endocrine: Negative for neck swelling, polydipsia, polyuria, polyphagia, and marked weight changes, Hematologic/Lymphatic: Negative for swollen nodes, abnormal bleeding, and unusual bruising. 10:18 MS/extremity: Positive for injury or acute deformity, decreased range of motion, pain, swelling, tenderness, of the anterior aspect of right shoulder and posterior aspect of right shoulder. Exam: 10:18 Constitutional: This is a well developed, well nourished patient who is awake, alert, mehdi and in no acute distress. Head/Face: Normocephalic, atraumatic. Eyes: Pupils equal round and reactive to light, extra-ocular motions intact. Lids and lashes normal. Conjunctiva and sclera are non-icteric and not injected. Cornea within normal limits. Periorbital areas with no swelling, redness, or edema. ENT: Nares patent. No nasal discharge, no septal abnormalities noted. Tympanic membranes are normal and external auditory canals are clear. Oropharynx with no redness, swelling, or masses, exudates, or evidence of obstruction, uvula midline. Mucous membranes moist. Neck: Trachea midline, no thyromegaly or masses palpated, and no cervical lymphadenopathy. Supple, full range of motion without nuchal rigidity, or vertebral point tenderness. No Meningismus. Chest/axilla: Normal chest wall appearance and motion. Nontender with no deformity. No lesions are appreciated. Cardiovascular: Regular rate and rhythm with a normal S1 and S2. No gallops, murmurs, or rubs. Normal PMI, no JVD. No pulse deficits. Respiratory: Lungs have equal breath sounds bilaterally, clear to auscultation and percussion. No rales, rhonchi or wheezes noted. No increased work of breathing, no retractions or nasal flaring. Abdomen/GI: Soft, non-tender, with normal bowel sounds. No distension or tympany. No guarding or rebound. No evidence of tenderness throughout. Back: No spinal tenderness. No costovertebral tenderness. Full range of motion. Skin: Warm, dry with normal turgor. Normal color with no rashes, no lesions, and no evidence of cellulitis. Neuro: Awake and alert, GCS 15, oriented to person, place, time, and situation. Cranial nerves II-XII grossly intact. Motor strength 5/5 in all extremities. Sensory grossly intact. Cerebellar exam normal. Normal gait. Psych: Awake, alert, with orientation to person, place and time. Behavior, mood, and affect are within normal limits. 10:18 Musculoskeletal/extremity: ROM: limited active range of motion due to pain, limited passive range of motion due to pain, Circulation is intact in all extremities. Sensation intact. Compartment Syndrome exam of affected extremity: is normal. DVT Exam: negative Homans' sign noted on exam, no appreciated bluish discoloration, no erythema, no increased warmth, pain, swelling, tenderness. 10:20 Neck: External neck: is normal, no acute changes, C-spine: appears grossly normal, no mehdi acute changes, Thyroid: appears normal, no acute changes, Trachea: is midline with no obvious abnormalities, no acute changes, ROM/movement: is normal, no acute changes. Vital Signs: 10:08 BP 103 / 70; Pulse 88; Resp 16; Temp 97.5(TE); Pulse Ox 98% on R/A; Weight 52.16 kg; ss MDM: 09:57 Patient medically screened. mehdi 10:20 Differential diagnosis: Anterior dislocation with fracture, Anterior dislocation mehdi without fracture, humeral head fracture, glenoid fracture, DJD, tendonitis. Differential diagnosis: abrasion, contusion, fracture, sprain, strain. Data reviewed: vital signs, nurses notes, radiologic studies, plain films. Data interpreted: environmental monitoring specialist: not applicable for this patient encounter. Data interpreted: Pulse oximetry: on room air is 98 %. Test interpretation: by ED physician or midlevel provider: plain radiologic studies. Counseling: I had a detailed discussion with the patient and/or guardian regarding: the historical points, exam findings, and any diagnostic results supporting the discharge/admit diagnosis, radiology results, the need for outpatient follow up. 11:04 ED course: pt states only shoulder pain , wants nothing else looked at, no head no neck mehdi pain. 04/23 10:07 Order name: XRAY Shoulder RIGHT 2 view 04/23 10:18 Order name: Sling; Complete Time: 11:08 mehdi 04/23 10:18 Order name: Ice pack; Complete Time: 10:22 [facility] Administered Medications: 11:25 Drug: [place] (7.5 mg-325 mg) 1 tabs Route: PO; 22:41 Follow up: Response: No adverse reaction Disposition: 04/23/20 11:06 Discharged to Home. Impression: Pain in right shoulder, Fall due to bumping against object. - Condition is Stable. - Discharge Instructions: Joint Pain, Arthritis, Musculoskeletal Pain, Shoulder Pain, Cryotherapy, [id number], Shoulder Pain, [id number], Fall Prevention in the Home, [id number], Cryotherapy. - Prescriptions for Tylenol- Codeine #3 300-30 mg Oral Tablet - take 1 tablet by ORAL route every 4 hours As needed; 26 tablet. - Medication Reconciliation Form, Thank You Letter, Antibiotic Education, Prescription Opioid Use form. - Follow up: Private Physician; When: 2 - 3 days; Reason: Recheck today's complaints, Continuance of care, Re-evaluation by your physician. Follow up: Norberto Kendall MD; When: 2 - 3 days; Reason: Recheck today's complaints, Re-evaluation by your physician. - Problem is new. - Symptoms have improved. Signatures: Dispatcher [employer] EDMS Azeem Nino MD MD cha Smirch, Shelby, ALEKSEY RN Earline Kwok RN RN Corrections: (The following items were deleted from the chart) 12:11 11:06 04/23/2020 11:06 Discharged to Home. Impression: Pain in right shoulder; Fall due ah to bumping against object. Condition is Stable. Forms are Medication Reconciliation Form, Thank You Letter, Antibiotic Education, Prescription Opioid Use. Follow up: Private Physician; When: 2 - 3 days; Reason: Recheck today's complaints, Continuance of care, Re-evaluation by your physician. Follow up: Dr. Norberto Kendall; When: 2 - 3 days; Reason: Recheck today's complaints, Re-evaluation by your physician. Problem is new. Symptoms have improved. mehdi
== END 2020-04-23 12:11 | disposition home or self-care (01) ==
LOC: ER 09:49
DX: M25.511 Pain in right shoulder (principal); W18.00XA Striking against unspecified object with subsequent fall, initial encounter; Y93.01 Activity, walking, marching and hiking; Y92.9 Unspecified place or not applicable
CPT/HCPCS: 99284

== ENCOUNTER 2020-04-27 08:44 | Emergency (ER) | payer OTHER ==
--- OUTSIDE RECORDS SUMMARY | 2020-04-27 09:10 | XMS REPORT | Continuity of Care Document ---
:[address] [facility] t Address [address] [place] [address] Care Team Providers Name Role Phone Unavailable Unavailable Unavailable Payers Payer Name Policy Type Policy Number Effective Date Expiration Date S ource Problems Condition Condition Condition Status Onset Resolution Last Treating Co mments Source Name Details Category Date Date Treatment Clinician Date Hearing Hearing Problem Active [facility] Vitamin D Vitamin D Problem Active [facility] deficiency deficiency Mary kes - Memoria l [facility] Hyperglyce Hyperglyce Problem Active [facility] manuela manuela [facility] Swelling Swelling Problem Active [facility] right of right [facility] elbow elbow Memoria l [facility] 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 [facility] - multiple multiple Memori a joints joints l [facility] Deep vein Deep vein Problem Active [facility] thrombosis thrombosis Mary kes - (DVT) of (DVT) of Memori a right right l lower lower [facility] extremity, extremity, en t unspecifie unspecifie Cl inics d d chronicity chronicity , , unspecifie unspecifie d vein d vein Complaint Complaint Problem Active [facility] of of [facility] - debility debility Memori a and and l malaise malaise [facility] Atopic Atopic Problem Active [facility] dermatitis dermatitis Mary kes - Memoria l [facility] Arthralgia Arthralgia Problem Active [facility] of right of right [facility] - elbow elbow Memoria l [facility] Anxiety Anxiety Problem Active [facility] Dizziness Dizziness Problem Active [facility] Closed Closed Problem Active [facility] nondisplac nondisplac Mary kes - ed ed Memoria intertroch intertroch l anteric anteric [facility] fracture fracture ent of right of right Clinic s femur with femur with routine routine healing, healing, subsequent subsequent encounter encounter Hyperlipid Hyperlipid Problem Active C [facility] emia emia [facility] 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 joint [facility]ics Vitamin B Vitamin B Problem Active [facility] 12 12 [facility] - deficiency deficiency Me moria l [facility] Decreased Decreased Problem Active [facility] testostero testostero Mary kes - ne level ne level Memori a l [facility]ics Hydrocele Hydrocele Problem Active [facility] 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 Degenerati Degenerati Problem Active C [facility] on of on of [facility] - lumbar or lumbar or Ceferino juvencio lumbosacra lumbosacra l l l [facility] interverte interverte en t bral disc bral disc Clin ics Erectile Erectile Problem Active [facility] t dysfunctio dysfunctio Mary kes - n n Memoria following following l radiation radiation Outp ati therapy therapy ent Clinics Prostate Prostate Problem Active [facility] Incontinen Incontinen Problem Active C HI [facility] ce ce kes - Memoria l [facility] Localized Localized Problem Active [facility] swelling swelling [facility] - of both of both Memoria lower legs lower legs l [facility]ics Memory Memory Problem Active [facility] changes [facility] Loss of Loss of Problem Active [facility] balance [facility] Allergies, Adverse Reactions, Alerts Allergy Allergy Status Severity Reaction(s) Onset Inactive Treating Comm ents Source Name Type Date Date Clinician iodine DA Active U 2019- [facility] 1-03 Clear 00:00: Gillis 00 [facility] iodine DA Active U [facility] 1-02 [facility] 00:00: e 00 [facility] iodine DA Active U [facility] 9-04 [facility] 00:00: e 00 [facility] Iodine Adverse Active Info Not [facility] Reaction Available [facility] Medications Ordered Filled Start Stop Current Ordering Indication Dosage Frequency Signature Comments Components Source Medication Medication Date Date Medication? Clinician (SIG) Name Name Omeprazole Omeprazole Yes Antoine [address] [facility] Sandhu [facility] Meclizine Meclizine Yes Antoine [address] [facility] HCl HCl Sandhu as needed [facility] Acetaminoph Acetaminoph Yes Antoine [address] en en Sandhu as needed [facility] ent [facility] Tylenol # 3 Tylenol # 3 Yes Antoine one tab [facility] Immunizations Ordered Filled Immunization Date Status Comments Sourc e Immunization Name Name FluAD FluAD 2018-09-[address] [facility] 00[facility]00 [facility] Procedures This patient has no known procedures. Encounters Start End Encounter Admission Attending Care Care Encounter Source Date/Time Date/Time Type Type Clinicians Facility Department ID 2020-03-19 2020-03-19 [facility] [id number] [facility] [address] 20:03:00 20:03:00 [facility] 2020-03-19 2020-03-19 [facility] [id number] 14:00:00 14:00:00 t [employer] [facility] 2020-03-13 2020-03-13 [facility] [id number] 13:22:00 13:22:00 t Specialty/U Mary kes - Specialty rology [facility] a /Urology Clinic l Clinic [facility] 2020-02-29 2020-02-29 [facility] [id number] 14:35:00 14:35:00 t Specialty/U Mary kes - Specialty rology Memori a /Urology Clinic l Clinic Outpati ent Clinics 2020-01-06 2020-01-06 [facility] [id number] 09:00:00 09:00:00 t [employer] s - Drive [facility] l Medicine Outpati ent Clinics 2019-12-30 2019-12-30 [facility] [id number] 09:09:00 09:09:00 t [employer] s - Drive [facility] Medicine Outpati ent Clinics 2019-12-27 2019-12-27 [facility] [id number] 13:00:00 13:00:[address] [facility] [address] [place] s - Road [facility] Medicine Outpati ent Clinics 2019-09-23 2019-09-23 [facility] [id number] 12:28:00 12:28:00 t Specialty/U Mary kes - Specialty rology Memori a /Urology Clinic l Clinic Outpati ent Clinics 2019-08-31 2019-08-31 [facility] [id number] 09:45:00 09:45:00 t Specialty/U Mary kes - Specialty rology Memori a /Urology Clinic l Clinic Outpati ent Clinics 2019-08-24 2019-08-24 [facility] [id number] 13:22:00 13:22:00 t [employer] s - Drive [facility] Medicine Outpati ent Clinics 2019-08-22 2019-08-22 [facility] [id number] 08:30:00 08:30:00 t [place] [employer] s - [email or web address] [facility] Medicine Outpati ent Clinics 2019-02-14 2019-02-14 [facility] [id number] 09:15:00 09:15:00 t [employer] s - Drive [facility] Medicine Outpati ent Clinics 2019-01-12 2019-01-12 [facility] [id number] 13:30:00 13:30:00 t [employer] s - Drive [facility] Medicine Outpati ent Clinics 2018-12-06 2018-12-06 [facility] [id number] 10:15:00 10:15:00 t Specialty/U Mary kes - Specialty rology [facility] a /Urology Clinic l Clinic Outpati ent Clinics 2018-09-07 2018-09-07 [facility] [id number] 08:30:00 08:30:[address] Luke s - [address] [facility] Outpati ent Clinics 2018-04-09 2018-04-09 [facility] [id number] 09:29:00 09:29:[address] Luke s - [address] [facility] Outpati ent Clinics 2018-04-05 2018-04-05 [facility] [id number] 09:00:00 09:00:[address] Luke s - Drive [facility] Outpati ent Clinics 2018-03-23 2018-03-23 [facility] [id number] 10:00:00 10:00:[address] Luke s - Drive [facility] Results Test Description Test Time Test Comments Results Result Comments Source - XR CHEST 1 V 2019-11-26 FAX: Y 08:32:00 Valencia Pham MD [phone] [place]: B St: ADM FAX: Blanco Mcintyre MD [phone] Name: ELIZABETH RO[facility] : 1935 Age/S: 84/M [address] Unit #: [id number] Loc: [place] [address] Phys: Blanco Mcintyre MD Acct: [id number] Dis Date: Status: ADM IN PHONE #: [phone] Exam Date: 11/26/2019 0800 FAX #: [phone] Reason: SOB EXAMS: CPT CODE: [id number] XR CHEST 1 V 77836 REASON FOR EXAM: SOB EXAM ORDER DATE: [...] By: [email or web address] Orig Print D/T: S: 11/26/2019 (0823) PAGE 1 Signed Report BASIC METABOLIC PANEL [...] code = CA) 8.6 mg/dL 8.5-10.1 N [id number] 07:02:00 Test Item Value Reference Range Interpretation Comments PHOSPHORUS (test code = PHOS) 3.0 mg/dL 2.5-4.9 N [id number] 07:02:00 Test Item Value Reference Range Interpretation Comments MAGNESIUM (test code = MAG) 2.1 mg/dL 1.8-2.4 N BASIC METABOLIC [id number] 06:57:00 Test Item Value Reference Range Interpretation [...] CALCIUM (test code = CA) mg/dL 8.5-10.1 [id number] 06:57:00 Test Item Value Reference Range Interpretation Comments PHOSPHORUS (test code = PHOS) mg/dL 2.5-4.9 [id number] 06:57:00 Test Item Value Reference Range Interpretation Comments MAGNESIUM (test code = MAG) mg/dL 1.8-2.4 CBC W/AUTO [id number] 06:25:00 Test Item Value Reference Range Interpretation [...] code = 0.00 K/mm3 0.0-0.1 N NRBC#) [id number] 08:18:00 Test Item Value Reference Range Interpretation Comments GLUBED (test code = 91 mg/dL 74-106 N Performe d by certified GLUBED) plate and frame filter operator at [facility] - CT CHEST [id number] 00:06:00 Name: ELIZABETH ROJO [facility] : 1935 Age/S: 84 / M [address] Unit #: [id number] Loc: [place] [address] Phys: Radha Dempsey HEALTH INSURANCE ADJUSTER Acct: [id number] Dis Date: Status: REG ER PHONE #: [phone] Exam Date: 11/24/2019 2330 FAX #: [phone] Reason: fall, pain, bruising EXAMS: CPT CODE: [id number] CT CHEST W/CONTRAST 73862 AFTER HOURSSERVICE ON: 11/24/2019 11:[address] [...] PAGE 1 Signed Report (CONTINUED)Name: ELIZAB[facility] ROJO [facility] : 1935 Age/S: 84 / M [address] Unit #: [id number] Loc: [place] [address] Phys: Radha Dempsey HEALTH INSURANCE ADJUSTER Acct: [id number] Dis Date: Status: REG ER PHONE #: [phone] Exam Date: 11/24/2019 2330 FAX #: [phone] Reason: fall, pain, bruising EXAMS: CPT CODE: [id number] CT CHEST W/CONTRAST 89277 <Continued> AFTER HOURS SERVICE ON: 11/24/2019 11:55 [...] 2 Signed Report (CONTINUED) Name: ELIZABETH ROJO [facility] : 1935 Age/S: 84 / M [address] Unit #: [id number] Loc: [place] [address] Phys: Radha Dempsey HEALTH INSURANCE ADJUSTER Acct: [id number] Dis Date: Status: REG ER PHONE #: [phone] Exam Date: 11/24/20192329 FAX #: [phone] Reason: fall, pain, bruising EXAMS: CPT CODE: [id number] CT CHEST W/CONTRAST 11054 <Continued> CC: Radha Dempsey HEALTH INSURANCE ADJUSTER; Rodger Montero MD Technologist:LAYNE MCDONOUGH CTDI: DLP: Trnscb Date/Time: 11/25/2019 (0006) [email or web address] Orig Print D/T: S: 11/25/2019 (0009) PAGE 3 Signed Report- CT ABD PELVIS [id number] 00:06:00 Name: EL[facility]AB[facility] RO[facility] : 1935 Age/S: 84 / M [address] [facility] Unit #: [id number] Loc: [place] [address] Phys: Radha Dempsey NP Acct: [id number] Dis Date: Status: REG ER PHONE #: [phone] Exam Date: 11/24/20192329 FAX #: [phone] Reason: fall, pain, bruising EXAMS: CPTCODE: [id number] CT ABD PELVIS W/CONT 46821 AFTER HOURS SERVICE ON: 11/24/2019 11:55 PM [...] PAGE 1 Signed Report (CONTINUED)Name: ELIZABETH ROJO [facility] : 1935 Age/S: 84 / M [address] [facility] Unit #: [id number] Loc: [place] [address] Phys: Radha Dempsey HEALTH INSURANCE ADJUSTER Acct: [id number] Dis Date: Status: REG ER PHONE #: [phone] Exam Date: 11/24/2019 2330 FAX #: [phone] Reason: fall, pain, bruising EXAMS: CPT CODE: [id number] CT ABD PELVIS W/CONT 34511 <Continued> AFTER HOURS SERVICE ON: 11/24/2019 11:55 [...] 2 Signed Report (CONTINUED) Name: ELIZABETH ROJO [facility] : 1935 Age/S: 84 / M [address] Unit #: [id number] Loc: [place] [address] Phys: Radha eDmpsey NP Acct: [id number] Dis Date: Status: REG ER PHONE #: [phone] Exam Date: 11/24/2019 2330 FAX #: [phone] Reason: fall, pain, bruising EXAMS: CPT CODE: [id number] CT ABD PELVIS W/CONT 20351 <Continued> CC: Radha Dempsey HEALTH INSURANCE ADJUSTER; Rodger Montero MD Technologist:LAYNE MCDONOUGH CTDI: DLP: Trnscb Date/Time: 11/25/2019 (5) [email or web address] Orig Print D/T: S: 11/25/2019 (8) PAGE 3 Signed ReportBASI METABOLIC [id number] 23:46:00 Test Item Value Reference Range Interpretation [...] GFR) formula.Chronic kidney disease is defined as ei er kidney damageor GFR <60 mL/min/1.73 m2 for >3 months. CREATININE (test code 0.80 mg/dL 0.7-1.3 N = CREAT) BUN/CREATININE RATIO 12.5 10-20 N (test code = BUN/CREA) CALCIUM (test code = 9.1 mg/dL 8.5-10.1 N CA) [id number] 23:46:00 Test Item Value Reference Range Interpretation Comments TROPONIN-I (test code = TROPI) <0.015 ng/mL 0-0.045 N CREATINE KINASE (CK)2019-11-24 23:37:00 Test Item Value Reference Range Interpretation Comments CREATINE KINASE (CK) (test code = 69 IUnit/L 26-208 N CK) PROTHROMBIN [id number] 23:36:00 Test Item Value Reference Range Interpretation [...] (2.5-3.5) IS PATIENT ON ANTICOAGULANTS? NTHROMBOPLASTIN TIME [id number] 23:36:00 Test Item Value Reference Range Interpretation Comments THROMBOPLASTIN TIME PARTIAL 29.5 seconds 25.0-36.5 N (test code = PTT) IS PATIENT ON ANTICOAGULANTS? NBASIC METABOLIC [id number] 23:32:00 Test Item Value Reference Range Interpretation [...] CALCIUM (test code = CA) mg/dL 8.5-10.1 [id number] 23:32:00 Test Item Value Reference Range Interpretation Comments TROPONIN-I (test code = TROPI) ng/mL 0-0.045 CBC W/O [id number] 23:32:00 Test Item Value Reference Range Interpretation [...] N = MPV) - XR CHEST 1 [id number] 22:33:00 FAX: Rodger Montero MD [place]: B St: REG Name: EL[facility]AB[facility] RO[facility] : 1935 Age/S: 84/M [address] [facility] Unit#: [id number] Loc: [place] [address] Phys: Rodger Montero MD Acct: [id number] Dis Date: Status: REG ER PHONE #: [phone] Exam Date: 11/24/2019 2140 FAX #: [phone] Reason: fall EXAMS: CPT CODE: [id number] XR CHEST 1 V 64597 REASON FOR EXAM: fall Exam Order Date: [...] superimposed acute consolidation cannot be excluded. Location: [facility] at 2233 Reported and signed by: Rey Rios MD PAGE 1 Signed Report (CONTINUED) FAX: Rodger Montero MD [place] us: B St: REG -- Name: ELIZABETH ROJO [facility] : 1935 Age/S: 84/M [address] Unit #: [id number] Loc: [place], [place] [address] Phys: Rodger Montero MD Acct: [id number] Dis Date: Status: REG ER PHONE #: [phone] Exam Date: 11/24/20192139 FAX #: [phone] Reason: fall EXAMS: CPT CODE: [id number] XR CHEST 1 V 78784 <Continued> CC: Rodger Montero MD Technologist: RT MILTON(R); Laura Neves(R) Trnscrd Date/Time/By: 11/24/2019 (2232) : By: Anna [email or web address] Orig Print D/T: S: 11/24/2019 (2235) PAGE 2 Signed Report- XR ELBOW 3 + V [id number] 22:17:00 FAX: Radha Dempsey NP [place]: St: REG FAX: Rodger Montero MD Name: ELIZAB[facility] RO[facility] : 1935 Age/S: 84/M [address] Unit #: [id number] Loc: [place] [address] Phys: Radha Dempsey NP Acct: [id number] Dis Date: Status: REG ER PHONE #: [phone] Exam Date: 11/24/20192139 FAX #: [phone] Reason: fall, pain EXAMS: CPT CODE: [id number] XR ELBOW 3 + [place] [address] CLINICAL HISTORY: ARM PAIN TECHNIQUE: 3 views [...] upper extremity is within normal limits. Location: [facility] at 2217 Reported and signed by: Rey Rios MD CC: Radha Dempsey NP; Rodger Montero MD Technologist: RT MILTON(R); Laura Neves(R) Trnwird Date/Time/By: 11/24/2019 (2216) : By: [email or web address] [facility] Print D/T: S: 11/24/2019 (2221) PAGE 1 Signed Report- XR SHOULDER 2 + V [id number] 22:17:00 FAX: Radha Dempsey NP [place]: St: REG FAX: Rodger Montero MD Name: ELIZABETH ROJO [facility] : 1935 Age/S: 84/M [address] Unit #: [id number] Loc: [place] [address] Phys: Radha Dempsey NP Acct: [id number] Dis Date: Status: REG ER PHONE #: [phone] Exam Date: 11/24/20192134 FAX #: [phone] Reason: fall, pain EXAMS: CPT CODE: [id number] XR SHOULDER 2 + V LT [address] CLINICAL HISTORY: ARM PAIN TECHNIQUE: 3 views [...] upper extremity is within normal limits. Location: [facility] at 2217 Reported and signed by: Rey Rios MD CC: Radha Dempsey NP; Rodger Montero MD Technologist: RT MILTON(R); Larua Neves(R) [facility] Date/Time/By: 11/24/2019 (2216) : By: [email or web address] [facility] Print D/T: S: 11/24/2019 (2219) PAGE 1 Signed Report- XR HUMERUS 2 + V [id number] 22:17:00 FAX: Radha Dempsey NP [place]: St: REG FAX: Rodger Montero MD Name: EL[facility]AB[facility] ROJO [facility] : 1935 Age/S: 84/M [address] [facility] Unit #: [id number] Loc: [place] [address] Phys: Radha Dempsey NP Acct: [id number] Dis Date: Status: REG ER PHONE #: [phone] Exam Date: 11/24/20192129 FAX #: [phone] Reason: ARM PAIN EXAMS: CPT CODE: [id number] XR HUMERUS 2 + [place] [address] CLINICAL HISTORY: ARM PAIN TECHNIQUE: 3 views [...] upper extremity is within normal limits. Location: [facility] at 2217 Reported and signed by: Rey Rios MD CC: Radha Dempsey NP; Rodger Montero MD Technologist: RT MILTON(R); Laura Neves(R) Trnscrd Date/Time/By: 11/24/2019 (2216) : By: Anna [email or web address] [facility] Print D/T: S: 11/24/2019 (2219) PAGE 1 Signed Report- XR HIP W/PEL UNI 2+V [id number] 22:13:00 FAX: Radha Dempsey NP [place]: St: REG FAX: Rodger Montero MD Name: ELIZAB[facility] ROJO [facility] : 1935 Age/S: 84/M [address] Unit #: [id number] Loc: [place] [address] Phys: Radha Dempsey HEALTH INSURANCE ADJUSTER Acct: [id number] Dis Date: Status: REG ER PHONE #: [phone] Exam Date: 11/24/20192124 FAX #: [phone] Reason: HIP PAIN EXAMS: CPT CODE: [id number] XR HIP W/PEL UNI 2+[place] [address] HISTORY: HIP PAIN EXAM: AP pelvis as [...] adjacent soft tissues. No hardware loosening. Location: [facility] at 2213 Reported and signed by: Rey Rios MD CC: Radha Dempsey NP; Rodger Montero MD Technologist: RT MILTON(R); Laura Neves(R) Trnwird Date/Time/By: 11/24/2019 (2212) : By: Anna [email or web address] [facility] Print D/T: S: 11/24/2019 (2216) PAGE 1 Signed Report- CT C-SPINE W/O [id number] 22:04:00 Name: ELIZAB[facility] ROJO [facility] : 1935 Age/S: 84 / M [address] Unit #: [id number] Loc: [place] [address] Phys: Radha Dempsey HEALTH INSURANCE ADJUSTER Acct: [id number] Dis Date: Status: REG ER PHONE #: [phone] Exam Date: 11/24/20192104 FAX #: [phone] Reason: Neck Pain EXAMS: CPTCODE: [id number] CT C-SPINE W/O CONTRAST 98435 HISTORY: HE ADACHE TECHNIQUE: Noncontrast 2.5 mm [...] 1 Signed Report (CONTINUED) Name: ELIZAB[facility] ROJO [facility] : 1935 Age/S: 84 / M [address] [facility] Unit #: [id number] Loc: [place] [address] Phys: Radha Dempsey HEALTH INSURANCE ADJUSTER Acct: [id number] Dis Date: Status: REG ER PHONE #: [phone] Exam Date: 11/24/20192104 FAX #: [phone] Reason: Neck Pain EXAMS: CPT CODE: [id number] CT C-SPINE W/O CONTRAST 72803 <Continued> Minimally displaced fracture of the left first rib. Location: [facility] at 2204 Reported and signed by: Rey Rios MD CC: Radha Dempsey HEALTH INSURANCE ADJUSTER; Rodger Montero MD Technologist:Azul Trotter RT(R) CTDI: DLP: Trnscb Date/Time: 11/24/2019 (2203) [email or web address] Orig Print D/T: S: 11/24/2019 (2206) PAGE 2 Signed Report- CT HEAD/BRAIN W/O [id number] 22:04:00 Name: EL[facility]AB[facility] RO[facility] : 1935 Age/S: 84 / M [address] [facility] Unit #: [id number] Loc: [place] [address] Phys: Radha Dempsey NP Acct: [id number] Dis Date: Status: REG ER PHONE #: [phone] Exam Date: 11/24/20192056 FAX #: [phone] Reason: HEADACHE EXAMS: CPT CODE: [id number] CT HEAD/BRAIN W/O CONT 64289 HISTORY: HEADACHE TECHNIQUE: Noncontrast 2.5 mm axial [...] 1 Signed Report (CONTINUED) Name: EL[facility]AB[facility] RO[facility] : 1935 Age/S: 84 / M [address] [facility] Unit #: [id number] Loc: [place] [address] Phys: Radha Dempsey NP Acct: [id number] Dis Date: Status: REG ER PHONE #: [phone] Exam Date: 11/24/20192056 FAX #: [phone] Reason: HEADACHE EXAMS: CPT CODE: [id number] CT HEAD/BRAIN W/O CONT 54895 <Continued> Minimally displaced fracture of the left first rib. Location: [facility] at 2204 Reported and signed by: Rey Rios MD CC: Radha Dempsey HEALTH INSURANCE ADJUSTER; Rodger Montero MD Technologist:Azul Trotter RT(R) CTDI: DLP: Trnscb Date/Time: 11/24/2019 (2203) [email or web address] Orig Print D/T: S: 11/24/2019 (2206) PAGE 2 Signed Report
--- OUTSIDE RECORDS SUMMARY | 2020-04-27 09:10 | XMS REPORT ---
:1935 Author Organization [employer] Care Team Providers Name Role Phone Fabi aTm Provider Role Unavailable Allergies No Known Allergies [...]
--- OUTSIDE RECORDS SUMMARY | 2020-04-27 09:11 | XMS REPORT ---
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
--- NOTE | 2020-04-27 09:46 | RAD REPORT ---
EXAM DESCRIPTION: CT - Thorax Wo Con CLINICAL HISTORY: Chest pain right blunt chest trauma COMPARISON: THORAX WO CONTRAST dated 05/25/2014 FINDINGS: Fibrotic changes are present with volume loss reduction in both lungs compatible with idio pathic pulmonary fibrosis. Small right pleural effusion is noted. No pneumothorax. No axillary, mediastinal or hilar adenopathy. Posterior right eighth rib shows comminuted fracture. No gross upper abdominal finding. All CT scans are performed using dose optimization technique as appropriate and may include automated exposure control or mA/KV adjustment according to patient size. IMPRESSION: Findings of idiopathic pulmonary fibrosis. Comminuted right posterior eighth rib fracture with small right pleural effusion.
--- NOTE | 2020-04-27 10:04 | EDPHYS ---
Physician Documentation [facility] Name: Mich Ash Age: 84 yrs Sex: Male : 1935 Arrival Date: 04/27/2020 Time: 08:49 Bed 7 Private MD: Antoine Sandhu ED Physician Jun Siddiqui HPI: 04/27 09:01 This 84 yrs old Male presents to ER via Unassigned with complaints of rib pain.rn 09:01 The patient or guardian reports chest pain that is located primarily in the right rn lateral anterior chest. Onset: The symptoms/episode began/occurred 2 day(s) ago. The pain does not radiate. Associated signs and symptoms: Pertinent negatives: cough, palpitations, shortness of breath, syncope. The chest pain is described as sharp, stabbing. Duration: The patient or guardian reports multiple episodes, that are intermittent. Modifying factors: The symptoms are alleviated by nothing. the symptoms are aggravated by deep breath, movement, palpation of area. Severity of pain: At its worst the pain was moderate in the emergency department the pain is unchanged. The patient has not experienced similar symptoms in the past. The patient has been recently seen by a physician:. Reports seen here recently for fall, did not have chest pain at that time, now having right rib pain, worse with movement/palpation/deep breath, no cough or sob, no fever. No new trauma. No back or abd pain.. Historical: - Allergies: 09:07 No Known Allergies; iw - Immunization history:: Adult Immunizations up to date. - Social history:: Smoking status: Patient/guardian denies using tobacco, the patient reports quitting approximately 30 years ago. - Family history:: not pertinent. - Hospitalizations: : No recent hospitalization is reported. ROS: 09:01 Constitutional: Negative for fever, chills, and weight loss, Eyes: Negative for injury, rn pain, redness, and discharge, Neck: Negative for injury, pain, and swelling, Cardiovascular: Negative for palpitations Respiratory: + right rib pain, neg for sob/cough/hemoptysis Abdomen/GI: Negative for abdominal pain, nausea, vomiting, diarrhea, and constipation, Back: Negative for injury and pain, MS/Extremity: Negative for injury and deformity, Skin: Negative for injury, rash, and discoloration, Neuro: Negative for headache, weakness, numbness, tingling, and seizure. Exam: 09:01 Constitutional: This is a well developed, well nourished patient who is awake, alert, rn appears in pain with twisting of torso but ambulatory and able to get into bed slowly. Head/Face: Normocephalic, atraumatic. ENT: MMM Chest/axilla: + right lateral mid-inferior rib tenderness without crepitus Cardiovascular: Regular rate and rhythm. No pulse deficits. Respiratory: Splinting with deep breath, equal bilaterally Abdomen/GI: soft, non-tender, no ecchymosis or discoloration Back: No spinal tenderness. MS/ Extremity: Pulses equal, no cyanosis. Neuro: Awake and alert, GCS 15. Motor strength 5/5 in all extremities. Sensory grossly intact. Cerebellar exam normal. Vital Signs: 09:06 BP 143 / 75; Pulse 74; Resp 16; Temp 98.2; Pulse Ox 96% on R/A; Weight 68.04 kg; Height iw 5 ft. 6 in. (167.64 cm); Pain 10/10; 09:06 Body Mass Index 24.21 (68.04 kg, 167.64 cm) iw MDM: 08:51 Patient medically screened. rn 10:00 Differential diagnosis: Blunt Chest Trauma Chest Wall Contusion Pneumothorax Pulmonary rn Contusion Rib Fracture. Data reviewed: vital signs, nurses notes, radiologic studies, CT scan, and as a result, I will discharge patient. Counseling: I had a detailed discussion with the patient and/or guardian regarding: the historical points, exam findings, and any diagnostic results supporting the discharge/admit diagnosis, radiology results, the need for outpatient follow up, to return to the emergency department if symptoms worsen or persist or if there are any questions or concerns that arise at home. Response to treatment: the patient's symptoms have mildly improved after treatment, and as a result, I will discharge patient. Special discussion: I discussed with the patient/guardian in detail that at this point there is no indication for admission to the hospital. It is understood, however, that if the symptoms persist or worsen the patient needs to return immediately for re-evaluation. ED course: Pt with single rib fracture, posterior eighth, no pneumothorax, after discussion with patient, will dc home with pain meds and incentive spirometer. Educated him on secondary problems that arise with rib fractures, states he "is strong" and would like to go home. Gave incentive spirometer. . 10:06 ED course: [place] scores 320/140/000/270. rn 04/27 09:01 Order name: XRAY Chest (1 view) rn 04/27 09:01 Order name: CT Chest Wo Con; Complete Time: 09:54 rn 04/27 09:01 Order name: INCENTIVE SPIROMETRY rn Administered Medications: 10:23 Drug: [place] 5 mg-325 mg 1 tabs Route: PO; iw 11:00 Follow up: Response: No adverse reaction iw Disposition: 04/27/20 10:02 Discharged to Home. Impression: Fracture of one rib, right side. - Condition is Stable. - Discharge Instructions: Rib Fracture. - Prescriptions for Tylenol- Codeine #3 300-30 mg Oral Tablet - take 1 tablet by ORAL route every 6 hours As needed; 20 tablet. - Medication Reconciliation Form, Thank You Letter, Antibiotic Education, Prescription Opioid Use form. - Follow up: Private Physician; When: 5 - 6 days; Reason: Recheck today's complaints, Re-evaluation by your physician. - Problem is new. - Symptoms have improved. Signatures: Dispatcher [employer] EDSarah Stallworth RN RN iw Jun Siddiqui MD MD metal furniture glazier: (The following items were deleted from the chart) 10:33 10:02 04/27/2020 10:02 Discharged to Home. Impression: Fracture of one rib, right side. iw Condition is Stable. Forms are Medication Reconciliation Form, Thank You Letter, Antibiotic Education, Prescription Opioid Use. Follow up: Private Physician; When: 5 - 6 days; Reason: Recheck today's complaints, Re-evaluation by your physician. Problem is new. Symptoms have improved. rn
--- NOTE | 2020-04-27 10:04 | ER ---
Nurse's Notes [facility] Name: Mich Ash Age: 84 yrs Sex: Male : 1935 Arrival Date: 04/27/2020 Time: 08:49 Bed 7 Private MD: Antoine Sandhu Diagnosis: Fracture of one rib, right side Presentation: 04/27 09:06 Chief complaint: Patient states: pain in right ribs since falling a few days ago. iw Coronavirus screen: Proceed with normal triage. Patient denies a cough. Patient denies shortness of breath or difficulty breathing. Patient denies measured and/or subjective temperature greater than 100.4F prior to today's visit. Patient denies travel on a cruise ship or to a country the [facility] currently lists as an affected area. Patient denies contact with known and/or suspected case of COVID-19. Ebola Screen: Patient negative for fever greater than or equal to 101.5 degrees Fahrenheit, and additional compatible Ebola Virus Disease symptoms Patient denies exposure to infectious person. Patient denies travel to an Ebola-affected area in the 21 days before illness onset. No symptoms or risks identified at this time. Initial Sepsis Screen: Does the patient meet any 2 criteria? No. Patient's initial sepsis screen is negative. Does the patient have a suspected source of infection? No. Patient's initial sepsis screen is negative. Risk Assessment: Do you want to hurt yourself or someone else? Patient reports no desire to harm self or others. Onset of symptoms was April 23, 2020. 09:06 Method Of Arrival: Wheelchair iw 09:06 Acuity: ELISSA 4 iw Triage Assessment: 10:30 General: Behavior is calm. iw Historical: - Allergies: 09:07 No Known Allergies; iw - Immunization history:: Adult Immunizations up to date. - Social history:: Smoking status: Patient/guardian denies using tobacco, the patient reports quitting approximately 30 years ago. - Family history:: not pertinent. - Hospitalizations: : No recent hospitalization is reported. Screenin:17 Abuse screen: Denies threats or abuse. Denies injuries from another. Nutritional iw screening: No deficits noted. Tuberculosis screening: No symptoms or risk factors identified. Fall Risk Fall in past 12 months (25 points). Assessment: 09:17 General: Appears in no apparent distress. Pain: Complains of pain in right lateral iw anterior chest. Neuro: Level of Consciousness is awake, alert, obeys commands, Oriented to person, place, Moves all extremities. Cardiovascular: Patient's skin is warm and dry. Respiratory: Respiratory effort is even, unlabored. Derm: Skin is intact, is fragile. Musculoskeletal: Range of motion: intact in all extremities. 09:35 Reassessment: Patient appears in no apparent distress at this time. iw Vital Signs: 09:06 BP 143 / 75; Pulse 74; Resp 16; Temp 98.2; Pulse Ox 96% on R/A; Weight 68.04 kg; Height iw 5 ft. 6 in. (167.64 cm); Pain 10/10; 09:06 Body Mass Index 24.21 (68.04 kg, 167.64 cm) iw ED Course: 08:49 Patient arrived in ED. mr 08:50 Antoine Sandhu DO is Private Physician. mr 08:51 Jun Siddiqui MD is Attending Physician. rn 08:57 Sarah Nagy RN is Primary Nurse. iw 09:07 Triage completed. iw 09:17 Arm band placed on. iw 09:18 No provider procedures requiring assistance completed. Patient did not have IV access iw during this emergency room visit. 09:34 CT Chest Wo Con In Process Unspecified. EDMS 09:35 Patient has correct armband on for positive identification. iw 09:54 XRAY Chest (1 view) In Process Unspecified. EDMS Administered Medications: 10:23 Drug: [place] 5 mg-325 mg 1 tabs Route: PO; iw 11:00 Follow up: Response: No adverse reaction iw Outcome: 10:02 Discharge ordered by . rn 10:32 Discharged to home via wheelchair, with family. iw 10:32 Condition: good 10:32 Discharge instructions given to patient, family, Instructed on discharge instructions, follow up and referral plans. medication usage, Demonstrated understanding of instructions, follow-up care, medications, Prescriptions given X 1. 10:33 Patient left the ED. iw Signatures: Dispatcher [employer] VIDA TanvirBeckie mr Sarah aNgy, ALEKSEY RN iw Jun Siddiqui MD MD rn
--- NOTE | 2020-04-27 10:10 | RAD REPORT ---
EXAM DESCRIPTION: RAD - Chest Single View - 04/27/2020 9:54 am CLINICAL HISTORY: BLUNT CHEST TRAUMA Chest pain. COMPARISON: CHEST PA AND LAT 2 VIEW dated 12/13/2015; CHEST PA AND LAT 2 VIEW dated 04/11/2014; CHEST SINGLE VIEW dated 11/22/2013 FINDINGS: Portable technique limits examination quality. 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 Small right pleural effusion noted. The hea rt is mildly enlarged in size.
[2020-04-27] MEDS ORDERED: HYDROCODONE/APAP 5/325 MG TAB ONE (10:20)
[2020-04-27 10:39] VITALS: BP 143/75; TEMP 98.2; O2SAT 96
== END 2020-04-27 10:33 | disposition home or self-care (01) ==
LOC: ER 08:44
DX: S22.31XA Fracture of one rib, right side, initial encounter for closed fracture (principal); W19.XXXA Unspecified fall, initial encounter; Y93.9 Activity, unspecified; Y92.9 Unspecified place or not applicable
CPT/HCPCS: 71045; 71250; 99283